=== PATIENT | female | born 1990 | race Caucasian/White ===

== ENCOUNTER 2020-10-14 15:03 | Emergency (ER) | payer BC ==
[2020-10-14 15:11] VITALS: BP 145/87; RESP 18; TEMP 98.3
[2020-10-14] MEDS ORDERED: KETOROLAC 15 MG/ML 1 ML VIAL IM STA (15:22)
--- NOTE | 2020-10-14 15:25 | ED ---
ENT HPI - General Chief complaint: Dental/Oral Stated complaint: Dental Pain Time Seen by Provider: 10/14/20 15:16 Source: patient Mode of arrival: ambulatory Limitations: no limitations - History of Present Illness Initial comments: Patient is a 30-year-old female presenting to the emergency Department with complaints of upper left-sided dental pain that started yesterday. She states the pain has worsened today so she decided to come in to be seen. He fevers or chills, no nausea or vomiting. She denies any facial swelling. She is to further complaints at this time. - Related Data Previous Rx's Medication Instructions Recorded Penicillin V Potassium [Pen Vee K] 500 mg PO QID 7 Days #28 tablet 10/14/20 Allergies Allergy/AdvReac Type Severity Reaction Status Date / Time Sulfa (Sulfonamide Allergy Anaphylaxis Verified 10/14/20 15:12 Antibiotics) Review of Systems ROS Statement: Those systems with pertinent positive or pertinent negative responses have been documented in the HPI. ROS Other: All systems not noted in ROS Statement are negative. Past Medical History Past Medical History: Diabetes Mellitus, Pneumonia, Pulmonary Embolus (PE), Thyroid Disorder Additional Past Medical History / Comment(s): DM Type 1 History of Any Multi-Drug Resistant Organisms: None Reported Past Surgical History: Section Additional Past Surgical History / Comment(s): tracheostomy Past Psychological History: No Psychological Hx Reported Smoking Status: Current every day smoker Past Alcohol Use History: None Reported Past Drug Use History: None Reported General Exam - General Exam Comments Initial Comments: GENERAL: Patient is well-developed and well-nourished. Patient is nontoxic and in no acute distress. HEAD: Atraumatic, normocephalic. EYES: Pupils equal round and reactive to light, extraocular movements intact, sclera anicteric, conjunctiva are normal. Eyelids were unremarkable. ENT: TMs normal, nares patent, oropharynx clear without exudates. Moist mucous membranes. Patient has partial missing tooth #16, this is where her pain is coming from, no visible dental abscess seen. No facial swelling at this time. NECK: Normal range of motion, supple without lymphadenopathy or JVD. LUNGS: Unlabored respirations. Breath sounds clear to auscultation bilaterally and equal. No wheezes rales or rhonchi. HEART: Regular rate and rhythm without murmurs, rubs or gallops. MUSCULOSKELETAL: Normal extremities with adequate strength and normal range of motion, no pitting or edema. No clubbing or cyanosis. NEUROLOGICAL: Patient is alert and oriented x 3. SKIN: Warm, Dry, normal turgor, no rashes or lesions noted. Limitations: no limitations Course Vital Signs 10/14/20 15:08 Temperature 98.3 F Pulse Rate 121 H Respiratory 18 Rate Blood Pressure 145/87 O2 Sat by Pulse 97 Oximetry Medical Decision Making - Medical Decision Making Patient is a 30-year-old female here with left-sided upper dental pain that started yesterday. No visible dental abscess on exam however she is painful and some of tooth #16 is missing. Patient was placed on penicillin for possible dental abscess, given a shot of Toradol today for pain. I recommended alternating between Tylenol and Motrin for any discomfort. She is to follow-up with her dentist. She is agreeable to this and is stable for discharge. Disposition Clinical Impression: Dental caries, Fracture of tooth, Toothache Disposition: HOME SELF-CARE Condition: Stable Instructions (If sedation given, give patient instructions): Toothache (ED) Additional Instructions: Please return to the Emergency Department if symptoms worsen or any other concerns. Take antibiotics as prescribed. Recommend alternating between Tylenol and Motrin for any discomfort. Follow-up with your dentist. Prescriptions: Penicillin V Potassium [Pen Vee K] 500 mg PO QID 7 Days #28 tablet Is patient prescribed a controlled substance at d/c from ED?: No Referrals: None,Stated [Primary Care Provider] - 1-2 days Time of Disposition: 15:25
[2020-10-14 15:48] VITALS: PULSE 108
== END 2020-10-14 15:48 | disposition home or self-care (01) ==
LOC: EC 15:03
DX: K02.9 Dental caries, unspecified (principal); K03.81 Cracked tooth; E10.9 Type 1 diabetes mellitus without complications; F17.200 Nicotine dependence, unspecified, uncomplicated
CPT/HCPCS: 99282; 96372; J1885